=== PATIENT | female | born 1950 | race Caucasian/White ===

== ENCOUNTER → 2016-09-30 | Outpatient (CLI) | payer MEDICARE ==
[~2016-09-30] MED LIST: ATOR10TA9 PO; FURO40TA6 PO; INSU100V13 SC; LACT10SO28 PO; LINA5TAB PO; METF10002 PO; PANT40TA5 PO; PROP20TA PO; RIFA550T PO; SAXA5TAB PO; SPIR50TA2 PO
== END | disposition home or self-care (01) ==
LOC: CFH 09:43
PROVIDERS: ATTEND Nurse Practitioner
DX: Z13.820 Encounter for screening for osteoporosis (principal); M85.88 Other specified disorders of bone density and structure, other site; N95.8 Other specified menopausal and perimenopausal disorders
CPT/HCPCS: 77080

== ENCOUNTER → 2016-10-26 | Outpatient (CLI) | payer MEDICARE | END | disposition home or self-care (01) | LOC: CFH 08:24 | PROVIDERS: ATTEND Nurse Practitioner | DX: K82.0 Obstruction of gallbladder (principal); K72.90 Hepatic failure, unspecified without coma; I25.10 Atherosclerotic heart disease of native coronary artery without angina pectoris; E11.9 Type 2 diabetes mellitus without complications; E78.5 Hyperlipidemia, unspecified; I10 Essential (primary) hypertension | CPT/HCPCS: 93975 ==

== ENCOUNTER → 2016-11-16 | Outpatient (CLI) | payer MEDICARE ==
[~2016-11-16] MED LIST changes: -RIFA550T PO; +RIFA550T4 PO
== END | disposition home or self-care (01) ==
LOC: CFH 14:03
PROVIDERS: ATTEND Internal Medicine
DX: I51.7 Cardiomegaly (principal); I25.10 Atherosclerotic heart disease of native coronary artery without angina pectoris; M25.78 Osteophyte, vertebrae; J98.11 Atelectasis
CPT/HCPCS: 71250

== ENCOUNTER → 2018-04-17 | Outpatient (CLI) | payer MEDICARE ==
[~2018-04-17] MED LIST changes: +INSU100C5 SQ-INSULIN; +INSU100I32 SQ; -SPIR50TA2 PO; +SPIR50TA4 PO
== END | disposition home or self-care (01) ==
LOC: CFH 08:02
PROVIDERS: ATTEND Internal Medicine
DX: Z12.31 Encounter for screening mammogram for malignant neoplasm of breast (principal); M85.88 Other specified disorders of bone density and structure, other site; K74.60 Unspecified cirrhosis of liver
CPT/HCPCS: 76700; 77080; 77067

== ENCOUNTER 2020-01-30 11:20 | Emergency (ER) | payer MEDICARE ==
[~2020-01-30] VITALS: Ht 162.6 cm; Wt 119.0 kg
[~2020-01-30 11:20] MED LIST changes: -PANT40TA5 PO; +PANT40TA6 PO
[2020-01-30 11:59] LABS: BASOPHILS % (AUTO) 1 % (0-1); EOSINOPHILS % (AUTO) 2 % (1-7); LYMPHOCYTES % (AUTO) 19 % (22-44); MEAN CORPUSCULAR HEMOGLOBIN 33.9 pg (27.0-34.8); MEAN CORPUSCULAR HGB CONC 33.6 g/dL (32.4-35.8); MEAN PLATELET VOLUME 7.8 fL (7.4-10.4); MONOCYTES % (AUTO) 11 % (2-9); NEUTROPHILS % (AUTO) 67 % (42-75); PLATELET COUNT 175 x10^3/uL (130-400); RED CELL DISTRIBUTION WIDTH 14.3 % (9.6-15.2)
[2020-01-30 12:01] LABS: MD NO
[2020-01-30 12:11] LABS: ALANINE AMINOTRANSFERASE 37 U/L (12-78); ALBUMIN 1.9 g/dL (3.4-5.0); ANION GAP 3 mmol/L (5-15); CALCIUM 8.4 mg/dL (8.5-10.1); CHLORIDE 107 mmol/L (98-107); CREATININE 1.19 mg/dL (0.55-1.02)
[2020-01-30 12:13] LABS: ALKALINE PHOSPHATASE 141 U/L (45-117); BILIRUBIN,TOTAL 2.3 mg/dL (0.2-1.0); TOTAL PROTEIN 6.9 g/dL (6.4-8.2)
--- NOTE | 2020-01-30 12:48 | NUR ---
THIS IS A 69 YO FEMALE SENT BY PCP FOR "LIVER PROBLEMS". PT WITH HX OF CIRRHOSIS, DISTENTED/ROUNDED ASCITIC ABDOMEN NOTED, NON TENDER TO PALPATION. PATIENT STATES "OVER SUMMER I JUST COULDN'T GET THE FLUID OUT OF MY LEGS, AND MY ABDOMEN HAS BEEN PROGRESSIVELY GETTING WORSE NAD IT'S CAUSING ME TO BE SHORT OF BREATH". ALL MONITORING IN PLACE, VSS, NADN. CALL LIGHT IN REACH
[2020-01-30] MEDS ORDERED: LIDOCAINE 1%, 10ML ONE (13:10)
--- NOTE | 2020-01-30 13:30 | NUR ---
PATIENT TO IR
--- NOTE | 2020-01-30 14:07 | NUR ---
REPORT TO SANDRA WATT. PLAN OF CARE DISCUSSED.
--- NOTE | 2020-01-30 14:10 | NUR ---
REPORT RECIEVED FROM AILYN FLORES, ASSUMED CARE OF PT AT THIS TIME.
--- NOTE | 2020-01-30 14:54 | NUR ---
PT BACK FROM IR, VSS, NO NEEDS EXPRESSED
--- NOTE | 2020-01-30 16:31 | NUR ---
PT AMBULATED TO BR WITH SHUFFLING BUT STEADY GAIT.
[2020-01-30 16:33] VITALS: BP 128/76
== END 2020-01-30 17:37 | disposition home or self-care (01) ==
LOC: ED 15:52
DX: K70.31 Alcoholic cirrhosis of liver with ascites (principal); R60.0 Localized edema; R06.00 Dyspnea, unspecified; R06.02 Shortness of breath; I10 Essential (primary) hypertension; E11.9 Type 2 diabetes mellitus without complications
CPT/HCPCS: 36415; 49083; 80053; 85025; 93005; 99285; J3490

== ENCOUNTER 2020-02-13 10:56 | Emergency (ER) | payer MEDICARE ==
[~2020-02-13] VITALS: Ht 162.6 cm; Wt 117.3 kg
[2020-02-13] MEDS ORDERED: LIDOCAINE 1%, 10ML ONE (11:23)
[2020-02-13 11:49] LABS: BASOPHILS % (AUTO) 1 % (0-1); EOSINOPHILS % (AUTO) 2 % (1-7); LYMPHOCYTES % (AUTO) 21 % (22-44); MD NO; MEAN CORPUSCULAR HEMOGLOBIN 34.4 pg (27.0-34.8); MEAN CORPUSCULAR HGB CONC 34.3 g/dL (32.4-35.8); MEAN PLATELET VOLUME 7.9 fL (7.4-10.4); MONOCYTES % (AUTO) 10 % (2-9); NEUTROPHILS % (AUTO) 67 % (42-75); PLATELET COUNT 205 x10^3/uL (130-400); RED BLOOD COUNT 4.08 x10^6/uL (3.82-5.3); RED CELL DISTRIBUTION WIDTH 14.5 % (9.6-15.2)
[2020-02-13 12:00] LABS: ALANINE AMINOTRANSFERASE 40 U/L (12-78); ALBUMIN 1.8 g/dL (3.4-5.0); ALKALINE PHOSPHATASE 150 U/L (45-117); ANION GAP 6 mmol/L (5-15); BILIRUBIN,TOTAL 2.2 mg/dL (0.2-1.0); CALCIUM 8.4 mg/dL (8.5-10.1); CHLORIDE 108 mmol/L (98-107); CREATININE 1.33 mg/dL (0.55-1.02); TOTAL PROTEIN 6.8 g/dL (6.4-8.2)
--- NOTE | 2020-02-13 12:18 | NUR ---
JACQUARD CARD CUTTER: PT TO IR, NOW IN ROOM 13
--- NOTE | 2020-02-13 12:46 | NUR ---
PT RETURNED FROM IR. PT RESTING COMFORTABLY ON GURNEY. NADN. AWAITING FURTHER ORDERS.
[2020-02-13] MEDS ORDERED: ALBUMIN HUMAN 25% 100 ML IV ONE (13:00)
--- NOTE | 2020-02-13 13:26 | NUR ---
ALBUMIN REQUESTED FROM PHARMACY. PIV PLACED.
[2020-02-13 14:30] VITALS: BP 104/58
== END 2020-02-13 14:33 | disposition home or self-care (01) ==
LOC: ED 14:05
DX: R18.8 Other ascites (principal); R10.9 Unspecified abdominal pain; I10 Essential (primary) hypertension; E11.9 Type 2 diabetes mellitus without complications
CPT/HCPCS: 36415; 49083; 71045; 80053; 85025; 96365; 99285; J3490; P9047

== ENCOUNTER 2020-03-02 10:59 | Emergency (ER) | payer MEDICARE ==
[~2020-03-02] VITALS: Ht 162.6 cm; Wt 115.5 kg
--- NOTE | 2020-03-02 14:01 | NUR ---
PEYMAN RN: CALLED PT FROM LOBBY TO DO VITALS, EXPLAINED WAIT. PT VERBALIZED UNDERSTANDING
--- NOTE | 2020-03-02 14:38 | NUR ---
PATIENT TO ROOM FROM LOBBY
[2020-03-02] MEDS ORDERED: LIDOCAINE 1%, 10ML ONE (15:28)
[2020-03-02 15:37] LABS: ALBUMIN 1.9 g/dL (3.4-5.0); ANION GAP 6 mmol/L (5-15); CALCIUM 8.3 mg/dL (8.5-10.1); CHLORIDE 105 mmol/L (98-107); CREATININE 1.48 mg/dL (0.55-1.02)
[2020-03-02 15:39] LABS: BASOPHILS % (AUTO) 1 % (0-1); EOSINOPHILS % (AUTO) 1 % (1-7); LYMPHOCYTES % (AUTO) 25 % (22-44); MEAN CORPUSCULAR HEMOGLOBIN 33.5 pg (27.0-34.8); MEAN CORPUSCULAR HGB CONC 33.8 g/dL (32.4-35.8); MEAN PLATELET VOLUME 8.2 fL (7.4-10.4); MONOCYTES % (AUTO) 13 % (2-9); NEUTROPHILS % (AUTO) 59 % (42-75); PLATELET COUNT 188 x10^3/uL (130-400); RED BLOOD COUNT 4.17 x10^6/uL (3.82-5.3); RED CELL DISTRIBUTION WIDTH 14.5 % (9.6-15.2)
--- NOTE | 2020-03-02 15:40 | NUR ---
PT RESTING CALMLY IN BED. AT BEDSIDE. PT WAS TAKEN TO IR, THEN BROUGHT BACK BEFORE PROCEDURE COMPLETED.
[2020-03-02 15:43] LABS: MD NO
--- NOTE | 2020-03-02 16:44 | NUR ---
IR AT BEDSIDE CURRENTLY FOR PROCEDURE.
[2020-03-02] MEDS ORDERED: SODIUM CHLORIDE FLUSH 10ML SYR IVF ONE (18:00)
[2020-03-02] MEDS ORDERED: ALBUMIN HUMAN 25% 100 ML IV ONE (18:00)
--- NOTE | 2020-03-02 18:40 | NUR ---
IV STARTED. REQUEST FOR MED TO BE SENT TO PHARM
--- NOTE | 2020-03-02 19:05 | NUR ---
REPORT TO KIMANI FLORES
[2020-03-02 19:23] VITALS: BP 103/73
--- NOTE | 2020-03-02 19:44 | NUR ---
discharge reviewed, shows understanidng.
== END 2020-03-02 20:04 | disposition home or self-care (01) ==
LOC: ED 19:50
DX: K70.31 Alcoholic cirrhosis of liver with ascites (principal); E11.9 Type 2 diabetes mellitus without complications; I11.9 Hypertensive heart disease without heart failure
CPT/HCPCS: 36415; 49083; 80048; 82040; 85025; 96365; 99285; J3490; P9047

== ENCOUNTER 2020-03-18 09:47 | Outpatient (CLI) | payer MEDICARE ==
[2020-03-18] MEDS ORDERED: LIDOCAINE 1%, 10ML ONE (09:57)
== END 2020-03-18 23:59 | disposition home or self-care (01) ==
LOC: RAD 09:47
PROVIDERS: ATTEND Nurse Practitioner
DX: R18.8 Other ascites (principal); K72.90 Hepatic failure, unspecified without coma
CPT/HCPCS: 49083

== ENCOUNTER 2020-03-26 13:19 | Outpatient (CLI) | payer MEDICARE ==
[2020-03-26] MEDS ORDERED: LIDOCAINE 1%, 10ML ONE ×2 (13:40→14:31)
[2020-03-26] MEDS ORDERED: ALBUMIN HUMAN 25%, 25GM/100ML ONE (14:06)
== END 2020-03-26 23:59 | disposition home or self-care (01) ==
LOC: RAD 13:19
PROVIDERS: ATTEND Nurse Practitioner
DX: R18.8 Other ascites (principal); K72.90 Hepatic failure, unspecified without coma; Z79.4 Long term (current) use of insulin; Z79.899 Other long term (current) drug therapy; Z72.89 Other problems related to lifestyle; Z83.3 Family history of diabetes mellitus; Z82.49 Family history of ischemic heart disease and other diseases of the circulatory system
CPT/HCPCS: 49083; P9047

== ENCOUNTER → 2020-04-09 | Outpatient (CLI) | payer MEDICARE ==
[~2020-04-09] MED LIST changes: +LIDOCAINE 1%, 10ML ONE
== END | disposition home or self-care (01) ==
LOC: RAD 12:56
PROVIDERS: ATTEND Nurse Practitioner
DX: R18.8 Other ascites (principal); K72.90 Hepatic failure, unspecified without coma
CPT/HCPCS: 49083

== ENCOUNTER → 2020-04-21 | Outpatient (CLI) | payer MEDICARE, OTHER | END | disposition home or self-care (01) | LOC: RAD 12:21 | PROVIDERS: ATTEND Nurse Practitioner | DX: R18.8 Other ascites (principal); K72.90 Hepatic failure, unspecified without coma; Z79.4 Long term (current) use of insulin; Z79.899 Other long term (current) drug therapy; Z72.89 Other problems related to lifestyle; Z82.49 Family history of ischemic heart disease and other diseases of the circulatory system; Z82.5 Family history of asthma and other chronic lower respiratory diseases | CPT/HCPCS: 49083 ==

== ENCOUNTER 2020-04-28 09:32 | Outpatient (CLI) | payer MEDICARE, OTHER ==
[~2020-04-28 09:32] MED LIST changes: -LIDOCAINE 1%, 10ML ONE
[2020-04-28] MEDS ORDERED: LIDOCAINE 1%, 10ML ONE (09:51)
== END 2020-04-28 23:59 | disposition home or self-care (01) ==
LOC: RAD 09:32
PROVIDERS: ATTEND Nurse Practitioner
DX: R18.8 Other ascites (principal); K72.90 Hepatic failure, unspecified without coma; Z72.89 Other problems related to lifestyle; Z79.899 Other long term (current) drug therapy; Z79.4 Long term (current) use of insulin; Z82.49 Family history of ischemic heart disease and other diseases of the circulatory system; Z83.3 Family history of diabetes mellitus
CPT/HCPCS: 49083

== ENCOUNTER 2020-05-21 13:30 | Emergency (ER) | payer MEDICARE, OTHER ==
[~2020-05-21] VITALS: Ht 162.6 cm; Wt 113.6 kg
[2020-05-21] MEDS ORDERED: FAMO-79 PO (13:47)
[2020-05-21] MEDS ORDERED: LACT10SO28 PO (13:47)
--- NOTE | 2020-05-21 13:51 | NUR ---
BIB EMS FOR C/O ABD DISTENTION AND ABD PAIN. RECENTLY HAD PORT PLACED FOR ABDOMINLA FLUID DRAINAGE AND GETS PARACENTESIS REGULARLY. 10 OVER THE PAST 2 MONTHS. PT STATES SHE MAY HAVE DISLODGED HER PORT FOR DRAINAGE YESTERDAY OR 2 DAYS AGO. PORT USING AND BAG NOT FILLING. PT ON [facility]. PT PLACED ON MONITORS. WARM BLANKET PROVIDED. NADN. MOLINA.
--- NOTE | 2020-05-21 14:42 | NUR ---
PT RESTING ON TATUM. VSS. AWARE OF POC FOR IR AND IS AGREEABLE.
--- NOTE | 2020-05-21 15:04 | NUR ---
BREAK RN: DR ABDUL AWARE OF BP. NO NEW ORDERS AT THIS TIME. PROVIDER WANTS PT TO GO TO IR. IR AWARE. AT BEDSIDE. CALL LIGHT IN PLACE. WILL CONTINUE TO MONITOR WHILE PRIMARY RN IS ON BREAK.
--- NOTE | 2020-05-21 15:41 | NUR ---
BREAK RN: REPORT GIVEN TO SANDRA YORK
--- NOTE | 2020-05-21 15:42 | NUR ---
PT BACK FROM IR. SPOKE W/ ERP DR. ABDUL IN REGARDS TO IR AND PT BP CURRENTLY AT 92/58. PER ERP PT IS OKAY TO DC HOME.
[2020-05-21 17:04] VITALS: BP 96/39
--- NOTE | 2020-05-21 17:04 | NUR ---
PT RESTING ON GURNEY. NADN. MOLINA.
--- NOTE | 2020-05-21 17:14 | NUR ---
PT BP DECREASING TO [address] FRANKO CAMPBELL PT HOME PT IS HOME HOSPICE PT.
--- NOTE | 2020-05-21 17:19 | NUR ---
DISCUSSED POLST CHECKED SELECTIVE TREATMENT W/ IV FLUIDS CHECKED FOR TREATMENT. DISCUSSED POLST W/ ERP DR. ABDUL AND PER ERP DR. ABDUL STILL NO NEED FOR IV FLUIDS W/ LOW SBP.
== END 2020-05-21 17:32 | disposition home or self-care (01) ==
LOC: ED 16:16
DX: T83.091A Other mechanical complication of indwelling urethral catheter, initial encounter (principal); I10 Essential (primary) hypertension; E11.9 Type 2 diabetes mellitus without complications; I95.9 Hypotension, unspecified
CPT/HCPCS: 76000; 99285